=== PATIENT | male | born 1945 | race Caucasian/White ===

== ENCOUNTER 2018-12-17 16:37 | Emergency (ER) | payer MEDICARE, OTHER ==
[2018-12-17 16:54] VITALS: BP 168/100
--- NOTE | 2018-12-17 17:15 | UC ---
Laceration HPI - HPI Summary HPI Summary: 73 y/o male presents to the urgent care c/o laceration on his chin s/p falling on the ice today around 1600 pm. Pt states he got up and noticed the blood. He went back home and irrigated w/ water and applied pressure and bleeding was controlled. Pain is 1/10 at touch. Pt is UTD w/ Tetanus vaccine. Pt denies LOC, BOWENS, dizziness, SOB, chest pain, abdominal pain, N/V/d. - History Of Current Complaint Chief Complaint: UCLaceration Stated Complaint: CUT ON CHIN Time Seen by Provider: 12/17/18 17:13 Hx Obtained From: Patient Laceration Location: Face - left side of chin Mechanism Of Injury: Sharp Trauma Onset/Duration: Sudden Onset, Lasting Hours - 2 hrs ago Severity: Mild Pain Intensity: 1 Pain Scale Used: 0-10 Numeric Aggravating Factors: Other: - touch - Allergies/Home Medications Allergies/Adverse Reactions: Allergies Allergy/AdvReac Type Severity Reaction Status Date / Time No Known Allergies Allergy Verified 12/17/18 16:54 Home Medications: Home Medications Aspirin [Ecotrin] 81 mg PO DAILY WITH MEAL 12/17/18 [History Confirmed 12/17/18] PMH/Surg Hx/FS Hx/Imm Hx Previously Healthy: Yes Cardiovascular History: Hypertension - Surgical History Surgical History: Yes Surgery Procedure, Year, and Place: 1952 TONSILLECTOMY, [place], [place]. 1956 RIGHT HAND SURGERY FOR INFECTION, [place]. 1961 APPENDECTOMY, [place], [place]. 1997 RIGHT GREAT TOE [place]USION, [facility] [place]. 2003 PROST[place]CTOMY, [facility] [place]. 2005 RIGHT CATARACT EXTRACTION WITH IOL IMPLANT, [facility] [place]. 2008 OPEN RIGHT INGUINAL HERNIA REPAIR, [facility] [place]. 2011 LEFT CATARACT EXTRACTION WITH IOL IMPLANT, [facility] [place] - Family History Known Family History: Positive: Cardiac Disease, Hypertension Family History: colon cancer and bladder cancer - Social History Occupation: Employed Part-time Lives: With Family Alcohol Use: Weekly Substance Use Type: None Smoking Status (MU): Never Smoked Tobacco - Immunization History Hx Tetanus, Diphtheria Vaccination: Yes - Pt states less than 5 years Review of Systems All Other Systems Reviewed And Are Negative: Yes Constitutional: Positive: Negative Skin: Positive: Other - laceration of his chin s/p fall w/ swelling Eyes: Positive: Negative ENT: Positive: Negative Respiratory: Positive: Negative Cardiovascular: Positive: Negative Gastrointestinal: Positive: Negative Genitourinary: Positive: Negative Motor: Positive: Negative Neurovascular: Positive: Negative Musculoskeletal: Positive: Other: - chin pain s/p fall Neurological: Positive: Negative Psychological: Positive: Negative Is Patient Immunocompromised?: No Physical Exam - Summary Physical Exam Summary: Vital Signs Reviewed: Yes General: well developed, well nourished male sitting in the examining table w/o any apparent distress Eye Exam: Normal Eyes: Positive: Conjunctiva Clear - PERRLA, EOMI, fundi grossly normal ENT: Positive: Normal ENT inspection, Hearing grossly normal, Pharynx normal, TMs normal. Neck: Positive: Supple, Nontender, No Lymphadenopathy Respiratory: Positive: Chest non-tender, Lungs clear, Normal breath sounds, No respiratory distress Cardiovascular: Positive: RRR, No Murmur, Pulses Normal, Brisk Capillary Refill Abdomen Description: Positive: Nontender, No Organomegaly, Soft. Negative: CVA Tenderness (R), CVA Tenderness (L) Bowel Sounds: Positive: Present Musculoskeletal: Positive: Strength Intact, ROM Intact, No Edema Neurological: Positive: Alert, Muscle Tone Normal Psychological Exam: Normal Skin: Positive:left side of chin with a linear laceration involving also the subcutaneous tissue about 1.8cm in size, bleeding, no foreign body observed. mild tenderness to palpation, w/ mild swelling, no ecchymosis around elbow. FROM of head, sensation intact, capillary refill brisk, and pulses WNL. No fracture of molar or teeth Triage Information Reviewed: Yes Vital Signs: Initial Vital Signs Temp 99.2 F 12/17/18 16:50 Pulse 87 12/17/18 16:50 Resp 18 12/17/18 16:50 BP 168/100 12/17/18 16:50 Pulse Ox 100 12/17/18 16:50 Laceration Repair - Laceration Repair 1 Description: Linear Laceration Size After Repair: Length (cm) - 1.8cm, Width (mm) - 0.3cm Modified For Repair: Yes Type Injection: Local Anesthesia Used: 1.0% Lido - 3ml Cleansing Completed Via Routine Prep: Yes Irrigation With Pressure Irrigation Device: Yes Closure Material: Sutures - 6 Closure Method: Single Layer Suture Of: Skin, SQ Suture Type: Nylon - 6.0 Laceration Course/Dx - Course/Dx Course Of Treatment: 73 y/o male presents to the urgent care c/o laceration on his chin s/p falling on the ice today around 1600 pm. Pt states he got up and noticed the blood. He went back home and irrigated w/ water and applied pressure and bleeding was controlled. Pain is 1/10 at touch. Pt is UTD w/ Tetanus vaccine. Pt denies LOC, BOWENS, dizziness, SOB, chest pain, abdominal pain, N/V/D. Hx obtained. Pt w/ a linear laceration over the left side of chin about 1.8cm in size on examination. LACERATION PROCEDURE NOTE: . Copious irrigation was done with saline by the nurse and the wound explored. There was no FB or deep structure injury noted. FROM of head and neck. procedure was explained and consent obtained, Timeout performed. The wound was anesthetized with 3 mL of 1 % lido with good anesthesia. Sterile drape and prep were don. There were 6 sutures with 6.0 nylon type of suture. The length of the wound after closure was 1.8cm. No debridement done. bacitrain oint applied over wound and covered with sterile dressing. Pt tolerated the procedure well without adverse effects. Neurovascular intact and FROM. Pt advised to f/u suture removal in 5-6 days and if any signs of infection develop to immediately return to the urgent care of PCP for further management and treatment.Pt's BP is elevated today advised to decrease salt in diet, monitor BP and f/u with PCP for further management. D/ c instrucitons explained. Pt understood and agreed and left the clinic ambulating A&Ox3. - Differential Dx - Laceration/Wound Differental Diagnoses: Abrasion, Dehiscence, Laceration, Puncture Wound, Tendon Laceration - Diagnosis Provider Diagnosis: Laceration of chin, Uncontrolled hypertension Discharge - Sign-Out/Discharge Documenting (check all that apply): Patient Departure - D/C home All imaging exams completed and their final reports reviewed: No - Discharge Plan Condition: Stable Disposition: HOME Prescriptions: Bacitracin OINTMENT* 1 applic TOPICAL BID #1 tube Patient Education Materials: Care For Your Stitches (ED), Facial Laceration (ED ) Referrals: Dov Reyes MD [Primary Care Provider] - 5 Days Additional Instructions: 1-Please apply topical antibiotic over the wound. Keep wound clean and dry 2- F/u suture removal in 5-6 days days w/ your PCP or here at the urgent care. 3-Take Ibuprofen or Tylenol PO q6-8hrs prn for pain or swelling. Apply ice to decrease swelling tonight 4- If you develop fever or redness around wound please return to the Urgent care or f/u w/ PCP 5-Your BP is elevated today. Please take your BP medications and decrease salt in your diet, monitor BP and if it continues to be elevated please f/u with your PCP for further management. If you develop chest pain, dizziness, visual disturbances, SOB, or severe BOWENS please go immediately to the ER for further management - Billing Disposition and Condition Condition: STABLE Disposition: Home
[2018-12-17] MEDS ORDERED: Lidocaine 1%* 5 ML VIAL INJ ONE (17:24)
--- NOTE | 2018-12-18 19:49 | UC ---
Course/Dx - Diagnoses Provider Diagnoses: Laceration of chin, Uncontrolled hypertension Discharge - Sign-Out/Discharge Documenting (check all that apply): Patient Departure All imaging exams completed and their final reports reviewed: No Studies - Discharge Plan Condition: Stable Disposition: HOME Prescriptions: Bacitracin OINTMENT* 1 applic TOPICAL BID #1 tube Patient Education Materials: Care For Your Stitches (ED), Facial Laceration (ED ) Referrals: Dov Reyes MD [Primary Care Provider] - 5 Days Additional Instructions: 1-Please apply topical antibiotic over the wound. Keep wound clean and dry 2- F/u suture removal in 5-6 days days w/ your PCP or here at the urgent care. 3-Take Ibuprofen or Tylenol PO q6-8hrs prn for pain or swelling. Apply ice to decrease swelling tonight 4- If you develop fever or redness around wound please return to the Urgent care or f/u w/ PCP 5-Your BP is elevated today. Please take your BP medications and decrease salt in your diet, monitor BP and if it continues to be elevated please f/u with your PCP for further management. If you develop chest pain, dizziness, visual disturbances, SOB, or severe BOWENS please go immediately to the ER for further management - Billing Disposition and Condition Condition: STABLE Disposition: Home
== END 2018-12-17 18:35 | disposition home or self-care (01) ==
LOC: UCEAST 16:37
DX: S81.812A Laceration without foreign body, left lower leg, initial encounter (principal); I10 Essential (primary) hypertension; W00.0XXA Fall on same level due to ice and snow, initial encounter; Y92.9 Unspecified place or not applicable
CPT/HCPCS: 12001; 99211; G0463

== ENCOUNTER 2018-12-24 08:26 | Emergency (ER) | payer MEDICARE, OTHER ==
--- NOTE | 2018-12-24 08:31 | UC ---
HPI Wound/Suture Re-check - HPI Summary HPI Summary: 73 y/o male presents to the urgent care requesting suture removal. Pt states wound is healing well. Pt states his BP is usually very high when he sees the doctor. He has been monitored as advised in th last visit and it has been 130/ 80. He has not taken his BP mediation yet today. He also has an appt with Dr Reyes in 2 weeks for further management on his BP. Pt denies fever, SOB, BOWENS, dizziness, SOB, chest pain, abdominal pIN, visual changes, N/V/d. - History Of Current Complaint Stated Complaint: REMOVE STITCHES Time Seen by Provider: 12/24/18 08:30 Hx Obtained From: Patient Onset/Duration: Sudden Onset, Lasting Weeks - 1 week ago, Resolved Pain Intensity: 0 Pain Scale Used: 0-10 Numeric Surgery Date: 12/17/18 - 6 chin sutures placed - Allergies/Home Medications Allergies/Adverse Reactions: Allergies Allergy/AdvReac Type Severity Reaction Status Date / Time No Known Allergies Allergy Verified 12/24/18 08:35 Home Medications: Home Medications Lisinopril TAB* [Prinivil TAB 10 MG*] 20 mg PO DAILY 12/24/18 [History Confirmed 12/24/18] PMH/Surg Hx/FS Hx/Imm Hx Previously Healthy: Yes Cardiovascular History: Hypertension - Surgical History Surgical History: Yes Surgery Procedure, Year, and Place: 1952 TONSILLECTOMY, [place], [place]. 1956 RIGHT HAND SURGERY FOR INFECTION, [place]. 1961 APPENDECTOMY, [place], [place]. 1997 RIGHT GREAT TOE FUSION, [facility] [place]. 2003 PROSTATECTOMY, [facility] [place]. 2005 RIGHT CATARACT EXTRACTION WITH IOL IMPLANT, [facility] [place]. 2008 OPEN RIGHT INGUINAL HERNIA REPAIR, [facility] [place]. 2011 LEFT CATARACT EXTRACTION WITH IOL IMPLANT, [facility] [place] - Family History Known Family History: Positive: Cardiac Disease, Hypertension Family History: colon cancer and bladder cancer - Social History Occupation: Employed Part-time Lives: With Family Alcohol Use: Weekly Substance Use Type: None Smoking Status (MU): Never Smoked Tobacco - Immunization History Hx Tetanus, Diphtheria Vaccination: Yes - Pt states less than 5 years Review of Systems All Other Systems Reviewed And Are Negative: Yes Constitutional: Positive: Negative Skin: Positive: Other - sutures placed on chin healing well, no infection Eyes: Positive: Negative ENT: Positive: Negative Respiratory: Positive: Negative Cardiovascular: Positive: Negative Gastrointestinal: Positive: Negative Genitourinary: Positive: Negative Motor: Positive: Negative Neurovascular: Positive: Negative Musculoskeletal: Positive: Negative Neurological: Positive: Negative Psychological: Positive: Negative Is Patient Immunocompromised?: No Physical Exam Triage Information Reviewed: Yes Appearance: Well-Appearing, No Pain Distress, Well-Nourished Vital Signs Reviewed: Yes Eye Exam: Normal ENT Exam: Normal Dental Exam: Normal Neck exam: Normal Respiratory Exam: Normal Cardiovascular Exam: Normal Abdominal Exam: Normal Bowel Sounds: Positive: Present Musculoskeletal Exam: Normal Neurological Exam: Normal Psychological Exam: Normal Skin: Positive: Other - Skin: Positive: chin laceration healing well with crusting and moderate granulation over, non tender to palpation, 6 sutures in placed. no swelling observed Course/Dx - Course Course Of Treatment: 73 y/o male presents to the urgent care requesting suture removal. Pt states wound is healing well. Pt states his BP is usually very high when he sees the doctor. He has been monitored as advised in th last visit and it has been 130/80. He has not taken his BP mediation yet today. He also has an appt with Dr Reyes in 2 weeks for further management on his BP. Pt denies fever , SOB, BOWENS, dizziness, SOB, chest pain, abdominal pain, visual changes, N/V/d. Hx obtained. Wound healing well with crusting and moderate granulation over, non tender to palpation, [address] 6 sutures removed w/o any difficulty. Pt tolerated well procedure. wound cleaned with sterile water and bacitracin applied over. Pt advised if redness, pain or fever develops to return to the urgent care or f/u with PCP for further treatment. Pt's BP elevated today. Manually taken after 20 min by nurse and it was 150/90, advised to decrease salt in diet and monitor BP, and f/u with PCP in 2-3 days for further management. However if he feels palpitations, dizziness, chest paoin etc to go inmediately to the ER for further management. Pt understood and agreed with plan of care. Pt left clinic hemodynamically stable. - Differential Dx - Laceration/Wound Differential Diagnoses: Cellulitis, Dehiscence, Healing Wound, Suture Removal - Diagnosis Provider Diagnosis: Visit for suture removal, Uncontrolled hypertension Discharge - Sign-Out/Discharge Documenting (check all that apply): Patient Departure - d/c home All imaging exams completed and their final reports reviewed: No Studies - Discharge Plan Condition: Stable Disposition: HOME Patient Education Materials: Acute Wound Care (ED), Low-Sodium Diet (ED) Referrals: Dov Reyes MD [Primary Care Provider] - 2 Days Additional Instructions: 1-Please apply topical antibiotic over the wound. Keep wound clean and dry 2- If you develop fever or redness around laceration please return to the Urgent care or your PCP for further management. 3-Your BP is elevated today. Please take your BP medications and decrease salt in your diet, monitor BP and if it continues to be elevated please f/u with your PCP for further management. If you develop chest pain, dizziness, visual disturbances, SOB, or severe BOWENS please go immediately to the ER for further management - Billing Disposition and Condition Condition: STABLE Disposition: Home - Attestation Statements Provider Attestation: I was available for consult. This patient was seen by the STEPHANIE. The patient was not presented to, seen by, or examined by me. -Surjit
[2018-12-24 08:48] VITALS: BP 150/90
== END 2018-12-24 08:55 | disposition home or self-care (01) ==
LOC: UCEAST 08:26
DX: S01.81XD Laceration without foreign body of other part of head, subsequent encounter (principal); I10 Essential (primary) hypertension; X58.XXXD Exposure to other specified factors, subsequent encounter
CPT/HCPCS: 99211; G0463

== ENCOUNTER → 2019-09-08 05:56 | Day surgery (SDC) | payer MEDICARE, OTHER ==
--- NOTE | 2019-08-31 20:17 | HP ---
CC: Soledad Davis NP, [facility] * HISTORY AND PHYSICAL: DATE OF PLANNED ADMISSION AND SURGERY: 09/08/19 HISTORY OF PRESENT ILLNESS: Mr. Harvey is a 74-year-old white male who is admitted with a suspicious bladder arising from the right trigone, for cystoscopy, transurethral resection of bladder tumor, and insertion of right ureteral stent. I have been following Mr. Harvey for 20 years because of history of PSA elevation, diagnosis of low-grade prostate carcinoma in 2003 for which he underwent a radical retropubic prostatectomy exactly 15 years ago to the day! He did very well after the surgery with good urinary continence, no recurrent disease, and his PSA has remained at 0.0. I have not seen him in several years. He has been doing well, followed by Dr. Reyes, his primary care physician. He was referred back to me by Ms. Davis because of new onset of gross painless hematuria. The hematuria started about one week ago and was totally painless, not associated with any flank pain or any changes in his voiding. He denies any urgency, frequency, or burning on urination. I saw the patient in my office and his urinalysis was positive for blood, negative for infection. He had then a flexible cystoscopy showing a flat irregular lesion overlying the right trigone and the right ureteral orifice. There were some ulcerations and bleeding arising from that lesion. 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 The rest of the bladder wall looked normal and there were no other suspicious lesions seen. Office renal ultrasound showed no hydronephrosis or renal masses. Full bladder ultrasound showed thickening of the right base of the bladder. No distal calculi were noted and there were good bilateral ureteral jets. CT urogram showed normal kidneys, normal ureters without any hydronephrosis or abnormal filling defects. Again was noted thickening of the right base of the bladder suspicious for infiltrating bladder tumor, without evidence of extravesical extension, and no lymphadenopathy. No other abnormalities were noted. With the above history and findings the patient is admitted for the above procedure. PAST MEDICAL HISTORY AND SYSTEM REVIEW: The patient has hyperlipidemia, maintained on atorvastatin 20 mg daily. He has hypertension, on lisinopril 20 mg daily. He has history of glaucoma, on eye drops. He takes 1 baby aspirin per day. He denies any cardiac or pulmonary diseases or symptoms. The patient was being evaluated by Dr. Dee because of ill-defined abdominal pain of long-term duration. It was not sure whether this represented an element of irritable bowel syndrome. The work-up was being performed when the patient developed gross hematuria and diagnosed with bladder lesions. His GI workup at this time is on hold. ALLERGIES: He denies any allergies to medications. FAMILY HISTORY: Negative for prostate carcinoma. 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 He is a nonsmoker. He denies use of recreational drugs. PHYSICAL EXAMINATION GENERAL: Pleasant, healthy and fit-looking white male. VITAL SIGNS: Blood pressure 120/70, pulse of 72. LUNGS: Clear. HEART: Regular and rhythmic. No murmurs. ABDOMEN: Soft. No masses. No tenderness. No CVA tenderness. EXTERNAL GENITALIA: Normal. Normal testes. No inguinal hernias. RECTAL: Exam showed an empty prostate fossa. No masses. No tenderness. EXTREMITIES: Show no edema. IMPRESSION: 1. Status post radical prostatectomy for prostate carcinoma with good surgical result and no recurrent disease. 2. Recurrent episodes of painless gross hematuria secondary to a suspicious lesion in the right base of the bladder overlying the trigone. 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 Normal CT urogram otherwise with no hydronephrosis or abnormal filling defects in the ureters or the collecting systems and no lymphadenopathy. 3. Hypertension, on treatment. 4. Hyperlipidemia, on treatment. 5. Long history of ill-defined abdominal cramping and pain, being worked up by Dr. Dee from Gastroenterology. PLAN: Plan is for cystoscopy and transurethral resection of the bladder lesion. Because the lesion is overlying the right trigone and the right ureteral orifice, he will require insertion of right ureteral stent. I discussed the above operation in detail with the patient. Depending upon the pathology, we will decide on the need for additional treatments. [id number]/[facility] #: [id number] [facility]
[~2019-09-08 05:56] MED LIST: Buffered Lidocaine 1% SYRIN* 1 ML/SYRINGE INTRADERM ONE; Dexamethasone IV* 4 MG/ML 1 ML (4 MG) ONE; EPHEDrine (Pressors)* 50 MG/ML VIAL ONE; Famotidine IV* 10 MG/ML 2 ML (20 mg) IV ONE; Famotidine IV* 10 MG/ML 2 ML (20 mg) ONE; Fluorescein 10% INJ* 100 MG/ML AMP ONE; Furosemide IV* 10 MG/ML 2 ML VIAL (20 MG) ONE; Iohexol 180 (CONTRAST) 10 ML SDV IV ONE; Ketorolac INJ* 30 MG/ML 1 ML VIAL ONE; Labetalol IV* 5 MG/ML 20 ML VIAL ONE; Lactated Ringers 1000 ML Bag* 1,000 ML IV SCH; Lidocaine 2% PF * 5 ML VIAL ONE; Midazolam* 1 MG/ML 5 ML VIAL (5 MG) ONE; Naloxone* 0.4 MG/ML 1 ML VIAL IV PRN; Ondansetron INJ* 2 MG/ML VIAL IV PRN; Ondansetron INJ* 2 MG/ML VIAL ONE; Propofol* 10 MG/ML 20 ML BTL ONE; cefTRIAXone(*) 2 GM ADDV.VIAL IVPB ONE; fentaNYL* 50 MCG/ML 2 ML VIAL (100 MCG VIAL) IV PRN; fentaNYL* 50 MCG/ML 2 ML VIAL (100 MCG VIAL) ONE
--- NOTE | 2019-09-08 13:06 | OP ---
CC: Dr. Dov Reyes OPERATIVE REPORT: DATE OF OPERATION: 09/08/19 DATE OF : 47 SURGEON: Chago King MD ANESTHESIOLOGIST: Dr. Wes Torres. ANESTHESIA: General. PRE-OP DIAGNOSIS: Invasive bladder tumor, right trigone and right posterolateral bladder wall. POST-OP DIAGNOSIS: Invasive bladder tumor, right trigone and right posterolateral bladder wall. OPERATIVE PROCEDURES: 1. Cystoscopy. 2. Right retrograde pyelography and insertion of right ureteral stent (6 Japanese ). 3. Transurethral resection of tumor of right base and right posterolateral bladder wall (3 to 4 cm). INDICATION FOR PROCEDURE: Mr. Harvey is a 74-year-old white male who is a nonsmoker and who presented to my office last week with a 1-week's history of new onset of gross painless hematuria. There was no associated flank pain and no voiding symptoms. The patient has had radical prostatectomy for prostate carcinoma 15 years ago and has had good result with no recurrent disease. Office cystoscopy followed by CT urogram showed a flat tumor involving the right trigone, the right base, and the right posterolateral wall of the bladder with thickening of the bladder wall consistent with local invasion, but no radiological finding of extravesical extension, no hydronephrosis and no abnormal filling defects in the ureters or in the collecting systems. With the above history, the patient is taken to the operating room for the above procedure. PATHOLOGY: At cystoscopy, the penile and bulbar urethrae looked normal. There was absence of the prostatic urethra consistent with the history of radical prostatectomy. The bladder neck was open and there was no contracture. Examination of the bladder wall showed normal left ureteral orifice. There was a flat, non papillary, ulcerated solid tumor involving the right trigone and the right posterolateral bladder wall. There was difficulty identifying the right ureteral orifice. Right retrograde pyelography showed normal right ureter and collecting system without any filling defects or hydronephrosis. On resection the tumor was solid, flat, minimally vascular and seemed to be deeply invasive into the muscle of the bladder wall. DESCRIPTION OF PROCEDURE: After successful general anesthesia, the patient was placed in the lithotomy position and was prepped and draped for a cystoscopy. Cystoscopy was performed, the bladder was carefully inspected, and the above findings were noted. Because of difficulty identifying the right ureteral orifice, the patient was given 0.3 cc of fluorescein IV. The right ureteral orifice was identified and was located just at the right medial edge of the bladder lesion. The orifice was successfully intubated with a guidewire and then with an open-ended catheter. Retrograde pyelography was performed. The above findings were noted. A size 6 Japanese stent was then placed with the proximal end coiling in the collecting system and the distal end coiling inside the bladder. The resectoscope was then passed inside the bladder. The bladder tumor was then resected deep to muscle, starting laterally and proceeding medially. There was minimal vascularity and the bleeders were fulgurated. The resection was carried deep until the identification of the deep muscle fibers. There was no perforation of the bladder wall. Because of concern about perforating the bladder wall, there was likely residual tumor deep in the base of the tumor. The bladder was then irrigated and all the resected tissue was evacuated and sent for pathology. Fulguration of the resected area was then performed. At the completion of the procedure, the right ureteral stent was still in good position by inspection and by fluoroscopy. There was very good hemostasis. There was no evidence of any bladder perforation. As mentioned above, there was likely residual tumor in the deeper bladder wall at the resection site. The cystoscope was then removed and a size 20-Japanese Bay catheter was passed inside the bladder and the balloon inflated with 10 cc of water and irrigation yielded clear returns. The patient tolerated the procedure well and left the operating room in good condition. The plan is to remove the Bay catheter before the patient is discharged home. I will see him in my office next week to discuss the result of the pathology and decide on the additional treatments needed. [id number]/[facility] #: [id number] [facility]
[2019-09-08 14:18] VITALS: BP 146/90
== END | disposition home or self-care (01) ==
LOC: OR 05:56
PROVIDERS: ATTEND Urology
DX: C67.0 Malignant neoplasm of trigone of bladder (principal); Z85.46 Personal history of malignant neoplasm of prostate; R31.0 Gross hematuria; I10 Essential (primary) hypertension; E78.5 Hyperlipidemia, unspecified
CPT/HCPCS: 74420; 88305; A9270-GY; C1876; J0696; J1100; J1885; J1940; J2250; J2405; J2704; J3010

== ENCOUNTER 2019-09-10 12:08 | Emergency (ER) | payer MEDICARE, OTHER ==
--- OUTSIDE RECORDS SUMMARY | 2019-09-10 12:28 | XMS REPORT | Continuity of Care Document ---
:1945 External Reference #:[id number] Author Name Soledad Davis, ELIZABETH Address [address] [place] [address] Care Team Providers Name Role Phone Abad Duran MD - Care Team Information Consultant Intern [phone] Otolaryngology Dov Reyes MD - Family Medicine Care Team Information Consultant Intern Problems Active Problems Provider Date Diverticulitis of colon Dov Reyes M.D. Onset: 07/13/2019 Thrombophlebitis of superficial veins of Dov Reyes M.D. Onset: 2017 lower extremity Mixed hyperlipidemia Dov Reyes M.D. Onset: 01/15/2016 Essential hypertension oDv Reyes M.D. Onset: 01/15/2016 Glaucoma Dov Reyes M.D. Onset: 06/25/2014 Malignant tumor of prostate Gamal Piedra M.D. Onset: 05/02/2012 FH: Cardiovascular disease Gamal Piedra M.D. Onset: 05/02/2012 Tinnitus Gamal Piedra M.D. Onset: 10/27/2011 Hyperlipidemia Gamal Piedra M.D. Onset: 10/27/2011 Benign essential hypertension Gamal Piedra M.D. Onset: 10/27/2011 Social History Type Date Description Comments Sex Unknown Tobacco Use Start: Unknown Never Smoked Cigarettes Tobacco Use Start: Unknown Patient has never smoked Smoking Status Reviewed: 08/29/19 Patient has never smoked Allergies, Adverse Reactions, Alerts Description No Known Drug Allergies Medications Active Medications SIG Qnty Indications Ordering Provider Date Atorvastatin Calcium take one tablet 30tabs Dov Reyes, 11/27/2011 20mg by mouth every M.D. Tablets day Lisinopril Take One Tablet 30tabs I10 Dov Reyes, 11/27/2011 20mg Tablets By Mouth Every M.D. Day Fish Oil - [place] 3 Fa. 1 PO qd Family Medicine 11/25/2005 [facility] [place] Mult[facility] 1 po qd 30tabs Unknown Tablets Travatan 1 drop each eye Unknown 0.004% Solution once daily Timolol Maleate 1 gtt both eyes Unknown Solution qd Aspirin Adult Low take 1 table by Unknown Strength mouth daily 81mg Tablets Immunizations CPT Code Status Date Vaccine Lot # [id number] Given 04/29/2017 Tetanus And Diptheria Adult Preservative Free [id number] Given 01/15/2016 Pneumococcal Conjugate Vacc-13 [id number] Given 05/31/2013 Zostivax [id number] Given 10/27/2011 Pneumococcal Immunization [id number] Given 05/27/2005 Td Immunization, For Use In Individuals 7 Years Or Older Vital Signs Date Vital Result Comment 08/29/2019 7:23pm BP Systolic 136 mmHg BP Diastolic 72 mmHg Heart Rate 86 /min Body Temperature 98.2 F Respiratory Rate 16 /min Height 69 inches 5'9" Weight 172.00 lb BMI (Body Mass Index) 25.4 kg/m2 07/13/2019 1:25pm BP Systolic 136 mmHg BP Diastolic 76 mmHg Heart Rate 68 /min Body Temperature 98.4 F Respiratory Rate 16 /min Height 69 inches 5'9" Weight 172.00 lb BMI (Body Mass Index) 25.4 kg/m2 Results Test Date Facility Test Result H/L Range Note Comprehensive Metabolic 07/13/2019 [facility]) Sodium 142 mEq/L 134-149 Prof Potassium 4.4 mEq/L 3.6-5.5 Chloride 106 mEq/L 94-112 Carbon Dioxide 26 mEq/L 21-32 Glucose 97 mg/dL 70-105 BUN 18 mg/dL 6-26 Creatinine 1.0 mg/dL 0.6-1.4 BUN/Creat Ratio 18.0 CALC 8.0-36.0 Calcium 9.1 mg/dL 8.6-10.2 Total Protein 6.6 g/dL 6.4-8.3 Albumin 4.2 g/dL 3.8-5.5 Globulin 2.4 g/dL 2.0-4.8 A/G Ratio 1.8 CALC 0.6-2.3 Alk. Phosphatase 58 U/L 22-95 Alt (SGPT) 16 U/L 7-35 Ast (Sgot) 21 U/L 5-34 Total Bilirubin 0.8 mg/dL 0.2-1.3 GFR Non- >60 ml/min/1.73m^ >=60 GFR >60 ml/min/1.73m^ >=60 Lipid Profile 07/13/2019 [facility]) Cholesterol 161 mg/dL 120- 200 Triglycerides 60 mg/dL 30-200 HDL Cholesterol 55 mg/dL 30-70 LDL (Calculated) 94 CALC 0-129 VLDL Cholesterol 12 mg/dL 0-50 HDL Risk Factor 2.9 CALC 0.0-4.4 Laboratory test 07/13/2019 [facility]) PSA <0.1 ng/mL Low 0.0- 4.0 finding CBC Electronic Fma 07/13/2019 [facility]) WBC 6.2 x10^3/UL 4.0- 10.0 RBC 4.25 x10^6/UL 3.93-6.00 HGB 14.0 g/dL 12.0-17.0 HCT 42 % 35-50 MCV 99.5 fL High 80.0-95.0 1 MCH 32.9 pg High 25.6-32.2 MCHC 33.1 g/dL 32.2-36.0 RDW-CV 12.9 % 11.6-14.4 PLT 238 x10^3/UL 163-400 MPV 9.7 fL 9.4-12.4 Carlo# 4.43 x10^3/UL 1.56-6.13 Lymph# 1.10 x10^3/UL Low 1.18-3.74 Hays# 0.58 x10^3/UL 0.24-0.82 Eos # 0.1 x10^3/UL 0.0-0.5 Baso # 0.02 x10^3/UL 0.01-0.08 Carlo% 71.1 % High 34.0-70.0 Lymph % 17.7 % Low 20.0-52.0 Hays% 9.3 % 5.0-12.0 Eos% 1.4 % 0.7-7.0 Baso% 0.3 % 0.1-1.2 1 consistent w/ previous results Procedures Date Code Description Status 07/14/2017 90763747 Colonoscopy Completed 11/29/2008 46912001 Colonoscopy Completed Medical Devices Description No Information Available Encounters Description No Information Available Assessments Date Code Description Provider 08/29/2019 R31.0 Gross hematuria Soledad Davis, ELIZABETH 07/13/2019 Z00.00 Encounter for general adult medical Dov Reyes M.D. examination without abnormal findings 07/13/2019 I10 Essential (primary) hypertension Dov Reyes M.D. 07/13/2019 E78.2 Mixed hyperlipidemia Dov Reyes M.D. 07/13/2019 H40.9 Unspecified glaucoma Dov Reyes M.D. 07/13/2019 Z85.46 Personal history of malignant neoplasm of Dov Reyes M.D. prostate 07/13/2019 K57.32 Diverticulitis of large intestine without Dov Reyes M.D. perforation or abscess without bleeding Plan of Treatment 08/29/2019 - Soledad Davis, NPR31.0 Gross hematuriaNew Labs:Ua - Micro ([facility] ), Ordered: 08/29/19Urine Culture & Sensitivity, Ordered: 08/29/19Comments: drink lots of fluids ED precautions reviewed scheduled for CT call if fever, pain, more blood referral to urologyAllComments:Medication Management Patient Understands medications he 's taking? Yes No Are there Barriers to Adherence? Yes No Has the patient been asked about herbal supplements and therapies, andOTC meds? Yes No Care Plan1. Patient has been queried about patient's goals/preferences and functional/ lifestyle goals at relevant visits. If relevant, describe: na2. Treatment goals as explained to the patient: above3. Are there barriers to meeting treatment goals? Yes No If Yes, please describe: comorbid conditions, disease process, polypharmacy 4. Self-Management goals as described to the patient: Yes NoAs always, we strongly encourage a healthy diet and making physical activity a part of your every day life. If you have questions about how or where to start, please contact the office. Functional Status Description No Information Available Mental Status Description No Information Available Referrals Description No Information Available
--- NOTE | 2019-09-10 13:14 | ED ---
GI/ HPI - HPI Summary HPI Summary: This patient is a 74 year old M presenting to [facility] with a chief complaint of urinary retention. Patient reports had a bladder surgery and urinary stent placement on 09/08/19. Pt last urinated today at 0800. Then states he couldnt urinate and has suprapubic pressure. Pt is referred from Dr. King in urology to get a urinary catheter in place for presumed urinary retention. Denies fevers, hematuria (did have hematuria initially). - History of Current Complaint Chief Complaint: EDUrogenitalProblems Time Seen by Provider: 09/10/19 12:31 Stated Complaint: NEEDS A CATHETER PER PT Hx Obtained From: Patient Onset/Duration: Started Days Ago, Still Present Timing: Constant Pain Intensity: 8 Associated Signs and Symptoms: Negative: Fever, Hematuria - Allergy/Home Medications Allergies/Adverse Reactions: Allergies Allergy/AdvReac Type Severity Reaction Status Date / Time No Known Allergies Allergy Verified 09/08/19 06:54 PMH/Surg Hx/FS Hx/Imm Hx Endocrine/Hematology History: Denies: Hx Diabetes, Hx Thyroid Disease Cardiovascular History: Reports: Hx Hypertension, Other Cardiovascular Problems/ Disorders - BILATERAL THROMBOINFLABITIS SINCE 2016, NO PROBLEMS Respiratory History: Denies: Hx Asthma, Hx Chronic Obstructive Pulmonary Disease (COPD) GI History: Reports: Hx Ulcer - 1971, NO PROBLEMS SINCE, Other GI Disorders - DIVERTICULOSIS, Dx WITH COLONOSCOPY, STATES MINIMAL Sx, FOLLOWED BY PRIMAR History: Reports: Other Problems/Disorders - HX PROSTATE CANCER, 2003 Denies: Hx Dialysis, Hx Renal Disease Sensory History: Reports: Hx Cataracts - BILATERAL, Hx Contacts or Glasses - GLASSES, Hx Glaucoma - ON MEDS, WELL CONTROLLED Denies: Hx Hearing Aid Opthamlomology History: Reports: Hx Cataracts - BILATERAL, Hx Contacts or Glasses - GLASSES, Hx Glaucoma - ON MEDS, WELL CONTROLLED - Cancer History Cancer Type, Location and Year: prostate 2004- removed - Surgical History Surgery Procedure, Year, and Place: 1952 TONSILLECTOMY, [place], [place]. 1956 RIGHT HAND SURGERY FOR INFECTION, [place]. 1961 APPENDECTOMY, [place], [place]. 1997 RIGHT [place]AT [place], [facility] [place] [facility] [place] 2005 RIGHT CATARACT [place] IOL IMPLANT[place] [facility] [place] 2008 OPEN RIGHT INGUINAL [place]PA[place] [facility] [place]. 2011 LEFT CATARACT [place]TRACTION WITH [place]OL IMPLANT, [facility] [place]. 2012 LEFT HERNIA REPAIR [facility] Hx Anesthesia Reactions: No Infectious Disease History: No Infectious Disease History: Denies: Hx Hepatitis, Hx Human Immunodeficiency Virus (HIV), Traveled Outside the [place] in Last 30 Days - Family History Known Family History: Positive: Cardiac Disease, Hypertension Family History: colon cancer and bladder cancer - Social History Alcohol Use: Occasionally Alcohol Amount: MAYBE 1-3 DRINKS/WEEK Substance Use Type: Reports: None Smoking Status (MU): Never Smoked Tobacco Have You Smoked in the Last Year: No Review of Systems Negative: Fever Negative: hematuria All Other Systems Reviewed And Are Negative: Yes Physical Exam - Summary Physical Exam Summary: Constitutional: Well-developed, Well-nourished, Alert. mild distress secondary to pain Skin: Warm, Dry HENT: Normocephalic; Atraumatic Eyes: Conjunctiva normal Neck: Musculoskeletal ROM normal neck. (-) JVD, (-) Stridor, (-) Nuchal rigidity Cardio: Rhythm regular, rate normal, Heart sounds normal; Intact distal pulses; Radial pulses are 2+ and symmetric. (-) Murmur Pulmonary/Chest wall: Effort normal. (-) Respiratory distress, (-) Wheezes, (-) Rales Abd: suprapubic tenderness, (-) Distension, (-) Guarding, (-) Rebound Musculoskeletal: (-) Edema Lymph: (-) Cervical adenopathy Neuro: Alert, Oriented x3 Psych: Mood and affect Normal Triage Information Reviewed: Yes Vital Signs On Initial Exam: Initial Vitals Temp Pulse Resp BP Pulse Ox 99.2 F 100 16 183/108 98 09/10/19 12:10 09/10/19 12:10 09/10/19 12:10 09/10/19 12:10 09/10/19 12:10 Vital Signs Reviewed: Yes Procedures - Sedation Patient Received Moderate/Deep Sedation with Procedure: No Diagnostics - Vital Signs Vital Signs Temp Pulse Resp BP Pulse Ox 09/10/19 12:10 99.2 F 100 16 183/108 98 - Laboratory Result Diagrams: 09/10/19 13:24 Lab Statement: Any lab studies that have been ordered have been reviewed, and results considered in the medical decision making process. Re-Evaluation - Re-Evaluation First Eval Re-Evaluation Time: 13:45 Change: Improved - Patient resting, states pain is improved. Mart irrigated. Will follow up with urology tomorrow. Cr bump to 1.3, advised to inc PO intake of fluids GIGU Course/Dx - Course Course Of Treatment: 74-year-old male history of bladder surgery and stent placement in on Wednesday presents with urinary retention. Bedside ultrasound with 670 mL of urine, fully place. Well check creatinine and UA. Per Dr. King, hold off on antibiotics pending culture. - Diagnoses Provider Diagnoses: Urinary retention, CHRISTINE (acute kidney injury) Discharge ED - Sign-Out/Discharge Documenting (check all that apply): Patient Departure - Discharge Plan Condition: Stable Disposition: HOME Patient Education Materials: Mart Catheter Placement and Care (ED) Referrals: Dov Reyes MD [Primary Care Provider] - 3 Days Additional Instructions: You were seen in the emergency department for urinary retention. We placed a Mart. Please follow up with urology tomorrow. Your creatinine which is a number of kidney function is slightly elevated likely secondary to the obstruction you had. Please drink lots of fluids. If any studies were not completed at the time of discharge you will be called with the relevant results. Please follow up with your primary care doctor in next 2-3 days and return to emergency department for worsening pain, lack of urine in the mart bag or concerning symptoms. It was a pleasure taking care of you today. - Billing Disposition and Condition Condition: STABLE Disposition: Home - Attestation Statements Document Initiated by Stewart: Yes Documenting Scribe: Vanna Bowen Provider For Whom Stewart is Documenting (Include Credential): Dr. Denny Stephens MD Scribe Attestation: I, Vanna Bowen, scribed for Dr. Denny Stephens MD on 09/10/19 at 2354. Scribe Documentation Reviewed: Yes Provider Attestation: The documentation as recorded by the Vanna velázquez accurately reflects the service I personally performed and the decisions made by me, Dr. Denny Stephens MD Status of Scribemanuel Document: Viewed
[2019-09-10 13:47] LABS: Urine Color Amber
[2019-09-10 13:49] LABS: Urine Appearance Cloudy; Urine Bacteria Absent (Absent); Urine Bilirubin Negative (Negative); Urine Blood 3+ (Negative); Urine Glucose Negative (Negative); Urine Ketones Negative (Negative); Urine Nitrite Negative (Negative); Urine Protein 2+(100 mg/dL) (Negative); Urine Red Blood Cell 3+(>10/hpf) (Absent); Urine Specific Gravity 1.009 (1.010-1.030); Urine Urobilinogen Negative (Negative); Urine White Blood Cell 3+(>20/hpf) (Absent)
[2019-09-10 13:59] LABS: BUN/Creatinine Ratio 16.7 (8-20); Calcium 8.9 mg/dL (8.6-10.3); EGFR African American 64.3 (>60); EGFR Non-African American 53.2 (>60); Potassium 4.2 mmol/L (3.5-5.0)
[2019-09-10 14:13] VITALS: BP 141/90
== END 2019-09-10 14:13 | disposition home or self-care (01) ==
LOC: ED 12:08
DX: R33.9 Retention of urine, unspecified (principal); N17.9 Acute kidney failure, unspecified; I10 Essential (primary) hypertension; Z85.46 Personal history of malignant neoplasm of prostate; Z79.899 Other long term (current) drug therapy
CPT/HCPCS: 36415; 80048; 81003; 81015; 87086; 99282

== ENCOUNTER 2019-10-13 10:24 | Emergency (ER) | payer MEDICARE, OTHER ==
--- NOTE | 2019-10-13 10:52 | ED ---
Upper Extremity Pain - HPI Summary HPI Summary: This patient is a 74 year old M with a history of bladder cancer on chemotherapy presenting to ED with a chief complaint of RUE swelling since 10/10. Patient started chemotherapy in the right arm on 10/03/19 for his bladder cancer. On 10/09/19, patient had blood work done in anticipation for his port placement and chemotherapy through the port on 10/10/19. However, patient left the right arm elastic dressing on for about an hour before realizing it was there and taking it off. Since then, patients right arm has become erythematous , warm, and swollen, worsening particularly in the last twenty four hours. Patient also reports having a subjective low-grade fever yesterday. Patient is concerned for a blood clot in the RUE as he had a LLE clot 3 years ago. He has not been taking aspirin since surgery in August. - History of Current Complaint Chief Complaint: EDGeneral Stated Complaint: POSS BLOOD CLOT PER PT Time Seen by Provider: 10/13/19 10:39 Hx Obtained From: Patient Onset/Duration: Started Days Ago - 10/10/19, Atraumatic, Still Present Timing: Constant Severity Initially: Mild Severity Currently: Mild Pain Location: Arm - Right Character: Unable to Describe - Swelling, erythematic, warm Aggravating Factor(s): Nothing Alleviating Factor(s): Nothing Associated Signs & Symptoms: Positive: Swelling, Redness, Fever - Allergies/Home Medications Allergies/Adverse Reactions: Allergies Allergy/AdvReac Type Severity Reaction Status Date / Time No Known Allergies Allergy Verified 10/13/19 10:45 PMH/Surg Hx/FS Hx/Imm Hx Endocrine/Hematology History: Denies: Hx Diabetes, Hx Thyroid Disease Cardiovascular History: Reports: Hx Hypertension, Other Cardiovascular Problems/ Disorders - BILATERAL THROMBOINFLABITIS SINCE 2017, NO PROBLEMS Respiratory History: Denies: Hx Asthma, Hx Chronic Obstructive Pulmonary Disease (COPD) GI History: Reports: Hx Ulcer - 1971, NO PROBLEMS SINCE, Other GI Disorders - DIVERTICULOSIS, Dx WITH COLONOSCOPY, STATES MINIMAL Sx, FOLLOWED BY PRIMAR History: Reports: Other Problems/Disorders - HX PROSTATE CANCER, 2003 Denies: Hx Dialysis, Hx Renal Disease Sensory History: Reports: Hx Cataracts - BILATERAL, Hx Contacts or Glasses - GLASSES, Hx Glaucoma - ON MEDS, WELL CONTROLLED Denies: Hx Hearing Aid Opthamlomology History: Reports: Hx Cataracts - BILATERAL, Hx Contacts or Glasses - GLASSES, Hx Glaucoma - ON MEDS, WELL CONTROLLED - Cancer History Cancer Type, Location and Year: prostate 2004- removed. bladder - Surgical History Surgery Procedure, Year, and Place: 1952 TONSILLECTOMY, [place], [place]. 1956 RIGHT HAND SURGERY FOR INFECTION, [place]. 1961 APPENDECTOMY, [place], [place]. 1997 RIGHT GREAT TOE FUSION, [facility] [place] 2003 PROSTATECTOMY, [facility] [place] 2004 RIGHT CATARACT EXTRACTION WITH IOL IMPLANT, [facility] [place] 2007 OPEN RIGHT INGUINAL HERNIA REPAIR, [facility] [place]. 2011 LEFT CATARACT EXTRACTION WITH IOL IMPLANT, [facility] [place]. 2012 LEFT HERNIA REPAIR [facility] [place]. 2019 bladder scraping Hx Anesthesia Reactions: No Infectious Disease History: No Infectious Disease History: Denies: Hx Hepatitis, Hx Human Immunodeficiency Virus (HIV), Traveled Outside the in Last 30 Days - Family History Known Family History: Positive: Cardiac Disease, Hypertension Family History: colon cancer and bladder cancer - Social History Alcohol Use: Occasionally Alcohol Amount: MAYBE 1-3 DRINKS/WEEK Hx Substance Use: No Substance Use Type: Reports: None Hx Tobacco Use: No Smoking Status (MU): Never Smoked Tobacco Have You Smoked in the Last Year: No Review of Systems Positive: Fever - Subjective low-grade Musculoskeletal: Other - Right arm swelling, warmth, and erythema All Other Systems Reviewed And Are Negative: Yes Physical Exam - Summary Physical Exam Summary: Constitutional: Well-developed, Well-nourished, Alert. (-) Distressed Skin: Warm, Dry HENT: Normocephalic; Atraumatic Eyes: Conjunctiva normal Neck: Musculoskeletal ROM normal neck. (-) JVD, (-) Stridor, (-) Nuchal rigidity Cardio: Rhythm regular, rate normal, Heart sounds normal; Intact distal pulses; Radial pulses are 2+ and symmetric. (-) Murmur Pulmonary/Chest wall: Effort normal. (-) Respiratory distress, (-) Wheezes, (-) Rales. Right chest wall port with a clean dressing Abd: Soft, (-) tenderness, (-) Distension, (-) Guarding, (-) Rebound Musculoskeletal: Diffuse swelling of the right arm from the mid-humerus to the wrist with erythema Lymph: (-) Cervical adenopathy Neuro: Alert, Oriented x3 Psych: Mood and affect Normal Triage Information Reviewed: Yes Vital Signs On Initial Exam: Initial Vitals Temp Pulse Resp BP Pulse Ox 96.9 F 87 19 152/109 100 10/13/19 10:25 10/13/19 10:25 10/13/19 10:25 10/13/19 10:25 10/13/19 10:25 Vital Signs Reviewed: Yes Procedures - Sedation Patient Received Moderate/Deep Sedation with Procedure: No Diagnostics - Vital Signs Vital Signs Temp Pulse Resp BP Pulse Ox 10/13/19 10:25 96.9 F 87 19 152/109 100 - Laboratory Result Diagrams: 10/13/19 11:04 10/13/19 11:04 Lab Statement: Any lab studies that have been ordered have been reviewed, and results considered in the medical decision making process. - Radiology CXR Radiology Interpretation Completed By: Radiologist Summary of Radiographic Findings: NO ACTIVE CARDIOPULMONARY DISEASE IS NOTED. Dr. Stephens has reviewed this radiology report. - Ultrasound RUE DVT Ultrasound Interpretation Completed By: Radiologist Summary of Ultrasound Findings: 1. SUPERFICIAL VENOUS THROMBUS WITHIN BOTH THE BASILIC AND CEPHALIC VEINS. 2. NO EVIDENCE FOR DEEP VENOUS THROMBOSIS. Dr. Stephens has reviewed this radiology report. Re-Evaluation - Re-Evaluation First Eval Re-Evaluation Time: 12:17 Comment: Discussed RUE DVT US results with patient. Discussed Dr. Cano's recommendations with patient. Will take aspirin and give fluids for elevated creatinine. Course/Dx - Course Course Of Treatment: 74 y/o male w hx bladder cancer currently on chemotherapy presents with right upper maxillary swelling. Differential includes DVT, cellulitis, infiltration of chemotherapy. Well check labs, ultrasound of the right arm and discuss with oncology. labs notable for normal WBC, elevated Cr from baseline. Still making good urine - Diagnoses Provider Diagnoses: Superficial venous thrombosis of right arm - Physician Notifications Discussed Care of Patient With: Andrzej Cano Time Discussed With Above Provider: 12:16 Instructed by Provider To: Other - Discussed patient case with Dr. Cano, oncologist, who agreed with continuing the patient's aspirin and giving fluids for the patient's elevated creatinine. Discharge ED - Sign-Out/Discharge Documenting (check all that apply): Patient Departure - Discharge - Discharge Plan Condition: Stable Disposition: HOME Patient Education Materials: Superficial Thrombophlebitis (ED) Referrals: Dov Reyes MD [Primary Care Provider] - Additional Instructions: You were seen in the emergency department for right arm swelling. Your ultrasound showed superficial clots, please continue taking 81 mg aspirin daily. You can apply warm compresses to the area. If any studies were not completed at the time of discharge you will be called with the relevant results. Please follow up with your primary care doctor in next 2-3 days and return to emergency department for worsening swelling, pain, numbness or tingling. fevers or concerning symptoms. It was a pleasure taking care of you today. - Billing Disposition and Condition Condition: STABLE Disposition: Home - Attestation Statements Document Initiated by Stewart: Yes Documenting Scribe: Austin Franco Provider For Whom Stewart is Documenting (Include Credential): Denny Stephens MD Scribe Attestation: I, Austin Franco, scribed for Denny Stephens MD on 10/13/19 at 1251. Scribe Documentation Reviewed: Yes Provider Attestation: The documentation as recorded by the Austin velázquez accurately reflects the service I personally performed and the decisions made by me, Denny Stephens MD Status of Scribe Document: Viewed
[2019-10-13 11:21] LABS: Hematocrit 35 % (42-52); Mean Corpuscular HGB Conc 34 g/dL (31-36); Mean Corpuscular Hemoglobin 33 pg (27-31); Mean Corpuscular Volume 97 fL (80-94); Red Blood Count 3.62 10^6 /uL (4.18-5.48); Red Cell Distribution Width 13 % (10-15); White Blood Count 8.5 10^3/uL (3.5-10.8)
[2019-10-13 11:25] LABS: INR 1.01 (0.82-1.09)
[2019-10-13 11:30] LABS: Albumin 3.6 g/dL (3.2-5.2); Albumin/Globulin Ratio 1.4 (1-3); BUN/Creatinine Ratio 16.4 (8-20); Calcium 8.6 mg/dL (8.6-10.3); EGFR African American 34.6 (>60); EGFR Non-African American 28.6 (>60); Globulin 2.5 g/dL (2-4); Potassium 4.1 mmol/L (3.5-5.0); Total Bilirubin 0.7 mg/dL (0.2-1.0); Total Protein 6.1 g/dL (6.4-8.9)
[2019-10-13 11:45] LABS: ABS Lymphocytes 0.6 10^3/ul (1.0-4.8); ABS Neutrophils 7.8 10^3/ul (1.5-7.7); Eosinophil % 0.6 %; Lymphocyte % 7.4 %; Mean Platelet Volume 7.6 fL (7.4-10.4); Nucleated Red Blood Cells % 0.1; Platelet Count 95 10^3/uL (150-450)
[2019-10-13] MEDS ORDERED: NS 0.9% 1000 ML** 1,000 ML IV ONE (12:16)
[2019-10-13 13:50] VITALS: BP 129/63
== END 2019-10-13 13:49 | disposition home or self-care (01) ==
LOC: ED 10:24
DX: I82.611 Acute embolism and thrombosis of superficial veins of right upper extremity (principal); C67.9 Malignant neoplasm of bladder, unspecified; I10 Essential (primary) hypertension; Z85.46 Personal history of malignant neoplasm of prostate; Z90.89 Acquired absence of other organs
CPT/HCPCS: 36415; 71045; 80053; 83605; 85025; 85060; 85610; 96360; 99283